=== PATIENT | female | born 1960 | race Caucasian/White ===

== ENCOUNTER → 2017-08-27 | Outpatient (CLI) | payer OTHER ==
[~2017-08-27] MED LIST: ACET-1138 PO; ALBUAER19 INH; ASCO10003 PO; CETI10TA84 PO; DEXT30TA7 PO; FRRG PO; LISI-788 PO; MULT-506 PO; NCYSR50 PO; NRV/5 PO; OMEG10002 PO; RXC5 PO; SNG10 PO; WARF1TAB PO
== END | disposition home or self-care (01) ==
LOC: C.PATHSPEC 15:59
PROVIDERS: ATTEND Obstetrics & Gynecology
DX: N92.4 Excessive bleeding in the premenopausal period (principal)

== ENCOUNTER 2018-04-29 05:40 | Observation (INO) | payer OTHER ==
[2018-04-11 16:13] VITALS: Ht 170.2 cm; Wt 121.8 kg
--- NOTE | 2018-04-25 13:28 | PAT Medication Instructions ---
Service Date Apr 25, 2018. Current Home Medication List Acetaminophen (Tylenol Extra Strength), 1,000 MG PO Q8@00,08,16 Albuterol Inhaler (Ventolin Inhaler), 2 PUFFS INH QID PRN for PRN Amlodipine Besylate (Amlodipine Besylate), 5 MG PO QPM Ascorbic Acid (Vitamin C), 1,000 MG PO QPM PRN for PRN Cetirizine (Zyrtec), 10 MG PO QPM Dextromethorphan-Guaifenesin (Mucinex Dm), 1 TAB PO PRN Lisinopril/Hctz (Zestoretic 20MG/25MG), 1 TAB PO QPM Montelukast Sod (Montelukast Sodium), 10 MG PO QPM Multivitamin (Multivitamin), 1 TAB PO QPM Medication Instructions For Your Scheduled Surgery - Hold the following medications the morning of surgery: Ascorbic Acid (Vitamin C), 1,000 MG PO QPM PRN for PRN Dextromethorphan-Guaifenesin (Mucinex Dm), 1 TAB PO PRN - Take the following medications the morning of surgery with a sip of water: Acetaminophen (Tylenol Extra Strength), 1,000 MG PO Q8@00,08,16 (okay to take up to 4 hours prior to surgery if needed) Albuterol Inhaler (Ventolin Inhaler), 2 PUFFS INH QID PRN for PRN (if needed) - Take the following medications as scheduled the night before surgery: Multivitamin (Multivitamin), 1 TAB PO QPM Lisinopril/Hctz (Zestoretic 20MG/25MG), 1 TAB PO QPM Montelukast Sod (Montelukast Sodium), 10 MG PO QPM Dextromethorphan-Guaifenesin (Mucinex Dm), 1 TAB PO PRN (if needed) Cetirizine (Zyrtec), 10 MG PO QPM Ascorbic Acid (Vitamin C), 1,000 MG PO QPM PRN for PRN (if needed) Amlodipine Besylate (Amlodipine Besylate), 5 MG PO QPM Acetaminophen (Tylenol Extra Strength), 1,000 MG PO Q8@00,08,16 Albuterol Inhaler (Ventolin Inhaler), 2 PUFFS INH QID PRN for PRN (if needed) If you have any questions please call us at [phone] or [phone] or [phone]
[2018-04-25 14:55] LABS: BASO % 0.4 %; BASO ABS # 0.04 K/uL (0-0.2); HEMATOCRIT 38.9 % (37-47); HEMOGLOBIN 12.9 g/dL (12.0-16.0); IG# 0.05 K/uL (0.00-0.02); LYMPH % 17.4 %; LYMPH ABS # 1.72 K/uL (1.2-3.4); MEAN CELL VOLUME 82.2 fL (80-100); MEAN CORPUSCULAR HEMOGLOBIN 27.3 pg (25-34); MEAN CORPUSCULAR HGB CONC 33.2 g/dl (32-36); MEAN PLATELET VOLUME 8.9 fL (7.4-10.4); MONO % 8.6 %; MONO ABS # 0.85 K/uL (0.11-0.59); NEUT % 71.1 %; NEUT ABS # 7.01 K/uL (1.4-6.5); PLATELET COUNT 315 K/uL (130-400); RED CELL DISTRIBUTION WIDTH CV 14.5 % (11.5-14.5); RED CELL DISTRIBUTION WIDTH SD 43.6 fL (36.4-46.3); WHITE BLOOD COUNT 9.87 K/uL (4.8-10.8)
[2018-04-25 16:21] LABS: CALCIUM 9.4 mg/dl (8.5-10.1); CREATININE 0.91 mg/dl (0.60-1.20); POTASSIUM 3.7 mmol/L (3.5-5.1)
[2018-04-29] VITALS (8 sets, daily range): BP systolic 121–148; BP diastolic 71–84; PULSE 82–93; TEMP 36.4–36.6; O2SAT 94–97
[~2018-04-29] VITALS: Ht 170.2 cm; Wt 121.8 kg
[~2018-04-29 05:40] MED LIST changes: -FRRG PO; -NCYSR50 PO; -OMEG10002 PO; -RXC5 PO; -WARF1TAB PO
[2018-04-29] MEDS ORDERED: LACTATED RINGER'S 1000ML 1,000 ML IV SCH ×2 (06:00→08:56)
[2018-04-29] MEDS ORDERED: CEFAZOLIN 3000MG IV PUSH 22.5 ML IV SCH (06:00)
[2018-04-29 06:07] LABS: BASO % 0.4 %; BASO ABS # 0.04 K/uL (0-0.2); EOS % 1.5 %; EOS ABS # 0.16 K/uL (0-0.5); HEMOGLOBIN 14.1 g/dL (12.0-16.0); LYMPH % 22.9 %; MEAN CELL VOLUME 81.7 fL (80-100); MEAN CORPUSCULAR HEMOGLOBIN 27.4 pg (25-34); MEAN PLATELET VOLUME 8.8 fL (7.4-10.4); MONO % 9.9 %; MONO ABS # 1.08 K/uL (0.11-0.59); NEUT % 64.4 %; NEUT ABS # 7.06 K/uL (1.4-6.5); PLATELET COUNT 366 K/uL (130-400); RED CELL DISTRIBUTION WIDTH CV 14.4 % (11.5-14.5); RED CELL DISTRIBUTION WIDTH SD 42.8 fL (36.4-46.3); WHITE BLOOD COUNT 10.94 K/uL (4.8-10.8)
[2018-04-29 06:18] LABS: MEAN CORPUSCULAR HGB CONC 33.6 g/dl (32-36)
--- NOTE | 2018-04-29 06:50 | History & Physical Bridge Note ---
H&P Re-Evaluation Bridge Note: I have examined the patient, reviewed the History & Physical and in the interval since the performance of the History & Physical I have noted the following changes of clinical significance: No changes noted
[2018-04-29] MEDS ORDERED: MIDAZOLAM HCL 1 MG/ML 2ML VIAL ONE (06:57)
[2018-04-29] MEDS ORDERED: FENTANYL CITRATE INJ 50 MCG/1 ML 2 ML VIAL ONE ×2 (06:57→09:13)
[2018-04-29] MEDS ORDERED: LABETALOL HCL IV 5 MG/ML 20ML IV PRN (08:30)
[2018-04-29] MEDS ORDERED: FENTANYL CITRATE INJ 50 MCG/1 ML 2 ML VIAL IV PRN (08:30)
[2018-04-29] MEDS ORDERED: ATROPINE SULFATE 0.1 MG/ML 5ML SYR IV PRN (08:30)
[2018-04-29] MEDS ORDERED: EpHEDrine SULFATE INJ 50 MG/ML AMP IV PRN (08:30)
[2018-04-29] MEDS ORDERED: MEPERIDINE HCL 25 MG/ML CARP IV PRN (08:30)
[2018-04-29] MEDS ORDERED: HYDROmorphone INJ 1 MG/ML SYR IV PRN (08:30)
[2018-04-29] MEDS ORDERED: ONDANSETRON INJ 2 MG/ML 2 ML VIAL IV PRN ×2 (08:30→09:00)
[2018-04-29] MEDS ORDERED: METHYLENE BLUE 0.5% 10 ML VIAL ONE ×2 (08:34→08:37)
[2018-04-29] MEDS ORDERED: PROPOFOL IV EMULSION 10 MG/ML 20 ML VIAL ONE (08:37)
[2018-04-29] MEDS ORDERED: NEOSTIGMINE METHYLSULFATE 5 MG/5 ML SYR ONE (08:56)
[2018-04-29] MEDS ORDERED: ROCURONIUM BROMIDE 10 MG/ML 5 ML VIAL ONE (08:56)
[2018-04-29] MEDS ORDERED: ONDANSETRON INJ 2 MG/ML 2 ML VIAL ONE (08:56)
[2018-04-29] MEDS ORDERED: GLYCOPYRROLATE INJ 0.2 MG/ML VIAL ONE (08:56)
--- NOTE | 2018-04-29 08:56 | [facility] Post Operative Brief Note ---
Immediate Operative Summary Operative Date Apr 29, 2018. Pre-Operative Diagnosis Abnormal Perimenopausal Bleeding, repetitive workup for same, desires definitive treatment Post-Operative Diagnosis Same Procedure(s) Performed Robotic Assisted Total Laparoscopic Hysterectomy, Bilateral Sapingectomy, Cystoscopy Surgeon Dr. Medina Jensen Bindery Machine Tender Surgeon(s) None Estimated Blood Loss 20 ml Findings Consistent with Post-Op Diagnosis Specimens A: Uterus, Cervix and Bilateral Fallopian tubes Drains None Anesthesia Type General Complication(s) none Disposition Accompanied Pt To Recover: no Disposition: Recovery Room / PACU
[2018-04-29] MEDS ORDERED: SIMETHICONE 80 MG CHEW PO PRN (09:00)
[2018-04-29] MEDS ORDERED: KETOROLAC TROMETHAMINE 30 MG/ML VIAL IV. PRN (09:00)
[2018-04-29] MEDS ORDERED: MEPERIDINE HCL 50 MG/ML CARP IV PRN ×2 (09:00)
[2018-04-29] MEDS ORDERED: OXYCODONE/ACETAMINOPHEN 5-325 TAB PO PRN (09:00)
[2018-04-29] MEDS ORDERED: ACETAMINOPHEN 325 MG TAB PO PRN (09:00)
[2018-04-29] MEDS ORDERED: OXYC-57 PO (09:06)
--- NOTE | 2018-04-29 09:07 | Discharge Instructions ---
Discharge Instructions Date of Service Apr 29, 2018. Visit Reason for Visit: Abnormal Perimenopausal Bleeding Discharge Discharge Diagnosis / Problem: Hysterectomy Discharge Goals Goal(s): Specific goals Activity Recommendations Activity Limitations: per Instructions/Follow-up section Anesthesia . Post Anesthesia Instructions: If you have had General Anesthesia or IV Sedation: * Do not drive today. * Resume driving when surgeon permits. * Do not make important decisions or sign legal documents today. * Call surgeon for: 1. Temperature elevations greater than 101 degrees F. 2. Uncontrollable pain. 3. Excessive bleeding. 4. Persistent nausea and vomiting. 5. Medication intolerance (nausea, vomiting or rash). * For nausea and vomiting use only clear liquids such as: tea, soda, bouillon until nausea subsides, then gradually increase diet as tolerated. * If you have any concerns or questions, call your surgeon's office. If physician is unavailable and it is an emergency, call 911 or go to the nearest emergency room. . Instructions / Follow-Up Instructions / Follow-Up POST OPERATIVE: BOWEL FUNCTION/MEDICATIONS: 1. Constipation pain and discomfort are the most common complaints 5-7 days after surgery. Points 2-6 address the things that can help. 2. Chewing gum can help stimulate the gut and help improve digestion and motility. 3. Milk of Magnesia 1-2 times per day until return of bowel function. 4. Colace is a stool softener that helps. Taking this 2-3 times per day until bowel function returns to normal is highly recommended. 5. Dulcolax is a laxative that may be used if several days have passed without a bowel movement. Alternatively Miralax may be used daily instead. 6. Drink plenty of fluids as this will also reduce constipation. 7. Narcotic pain medications will be prescribed by your physician. They are safe to use and we encourage you to use them. If you are not allergic, ibuprofen will also be prescribed. Many patients will be able to transition off of the narcotic medications to ibuprofen by postoperative day 3. ACTIVITY RECOMMENDATIONS: 1. Get plenty of rest and listen to your body. If you are tired, take a nap. 2. You may shower, but do not take a tub bath until you see your doctor at the 2 week post operative visit. 3. Absolutely NO intercourse and nothing in the vagina until you are examined by your doctor at the 6 week visit. At that visit it will be determined when such activities can be resumed. This can range from 6-12 weeks after your surgery depending on healing time. 4. The main physical activity in the first week should be walking. By the second week you can slowly increase activity. There are no limits on walking up and down stairs. 5. Do not lift more than 5-10 lbs for 4 weeks. Remember the "one-handed rule", i.e. if you can lift something with only one hand it's likely okay. 6. Minimize automatic blocker like vacuuming and exercising for 4 weeks. "Overdoing it" can lead to incisions not healing, pain and vaginal bleeding , so again, listen to your body. 7. Driving can be resumed when you feel able. Do not drive within 24 hours of taking a narcotic medication. EXPECTATIONS: 1. Vaginal spotting, bleeding and discharge are common after surgery. There may even be an odor to the discharge which is often related to sutures used in the vagina. If you experience heavy vaginal bleeding, call the office number day or night [phone]. 2. Bladder discomfort is common after surgery from the catheter. This usually resolves in 1-2 weeks. 3. By the end of the 3rd or 4th week you should be feeling much better. It may take up to 6 weeks for your energy levels to return to normal. 4. Narcotic medications have side effects such as: dizziness, headache, nausea and/or vomiting. If you suspect your pain medication is causing problems, call our office and we may be able to prescribe an alternate medication. 5. The skin incisions are often covered with a liquid bandage. This will gradually peel off over time. CALL THE OFFICE IF YOU HAVE ANY OF THE FOLLOWIN. Temperature of 101 degrees or higher. 2. Severe abdominal or pelvic pain not relieved by pain medication. 3. Persistent nausea or vomiting. 4. Increased pain with urination or difficulty urinating. 5. Bright red bleeding that soaks more than 1 pad per hour. CONTACT PHONE NUMBERS: Main Office: [phone] Surgical Nurse: [phone] extension [phone] FOLLOW-UP: Post-Operative Appointments: * Individual instructions will have been given about the timing of your first examination, but this is usually at the end of the second week home. * You will need to call the office at soon after discharge to make the appointment for your post-op check-up if it has not already been scheduled. * Additional information regarding activity, sexual intercourse and when to return to work will be given at this appointment. WE WISH YOU A SPEEDY RECOVERY! Diet Recommendations Recommended Home Diet: resume previous diet Procedures Procedures Performed: Robotic Assisted Total Laparoscopic Hysterectomy, Bilateral Sapingectomy, Cystoscopy Pending Studies Studies pending at discharge: no Medical Emergencies . Who to Call and When: Medical Emergencies: If at any time you feel your situation is an emergency, please call 911 immediately. . Non-Emergent Contact Non-Emergency issues call your: Primary Care Provider . . "Provider Documentation" section prepared by Medina Jensen. . [place] Drug Monitoring Program Search Results: patient reviewed within database, no issues identified
[2018-04-29] MEDS ORDERED: KETOROLAC TROMETHAMINE 30 MG/ML VIAL ONE (09:12)
--- NOTE | 2018-04-29 09:56 | Anesthesiology Progress Note ---
Anesthesia Post Op Note Date & Time Apr 29, 2018 at 09:55 Vital Signs Pain Intensity: 3 Vital Signs Past 12 Hours Date Time Temp Pulse Resp B/P (MAP) Pulse Ox O2 Delivery O2 Flow Rate FiO2 04/29/18 09:45 36.2 75 16 144/86 97 Oxymask 2 04/29/18 09:35 77 18 148/82 97 Oxymask 2 04/29/18 09:25 74 17 130/90 97 Oxymask 8 04/29/18 09:15 77 16 120/84 97 Oxymask 8 04/29/18 09:08 36.2 78 16 133/91 97 Oxymask 8 04/29/18 06:57 36.4 93 18 148/80 (102) 94 Room Air Notes Mental Status: alert / awake / arousable, participated in evaluation Pt Amnestic to Procedure: Yes Nausea / Vomiting: adequately controlled Pain: adequately controlled Airway Patency, RR, SpO2: stable & adequate BP & HR: stable & adequate Hydration State: stable & adequate Anesthetic Complications: no major complications apparent
--- NOTE | 2018-04-29 10:13 | SURGICAL CONSULTATION ---
DATE OF CONSULTATION: 04/29/2018 INTRAOPERATIVE CONSULTATION. SUMMARY: I was called by Dr. Jensen to evaluate an intraoperative finding. Apparently, patient was sat up in a robotic Trendelenburg position for a hysterectomy as I walked in. The uterus is mostly dissected out. The concern that Dr. Jensen had, was in the left side, she felt that there was an adhesive band to the anterior abdominal wall and then the base of that band, there was some little brownish discoloration, was not sure exactly what that was. At this point on evaluating I asked her to raise the image up and this was the medial umbilical ligament that was fairly prominent. The base with the sigmoid colon was attached to it. It appeared to me just by looking at it that probably the patient had some inflammatory changes in that area and whether this bluish discoloration which was very minimal, about 2 cm was related to an endometrioma or possibly an abscess that may develop a diverticulum, at this point given the process that the patient had, undergoing a hysterectomy, I elected not to do anything further. There was obviously no perforation. What I recommended only is to follow up with primary care in the future to get a CAT scan and evaluate that area more thoroughly. She may need further referral to GI. We will be glad to see her in the office anytime, any new developments, but at this point nothing surgically should be done at this time regarding that area.
[2018-04-29] MEDS ORDERED: IV FLUIDS COMPLETED PRN (10:15)
[2018-04-29] MEDS: DOCUSATE SODIUM 100 MG CAP PO SCH ×2 (10:55→13:12)
--- NOTE | 2018-04-29 11:02 | OPERATIVE REPORT ---
DATE OF OPERATION: 04/29/2018 PREOPERATIVE DIAGNOSIS: Abnormal perimenopausal bleeding with repetitive workup and patient desires definitive treatment. POSTOPERATIVE DIAGNOSIS: Abnormal perimenopausal bleeding with repetitive workup and patient desires definitive treatment. PROCEDURE: Robotic-assisted total laparoscopic hysterectomy, bilateral salpingectomy, and cystoscopy. SURGEON: Medina Jensen MD FISH HATCHERY MANAGER: None. ESTIMATED BLOOD LOSS: 20 mL. FINDINGS: Consistent with postoperative diagnosis. SPECIMENS: Uterus, cervix, and bilateral fallopian tubes. DRAINS: None. ANESTHESIA: General. COMPLICATIONS: None. DISPOSITION: Stable to recovery room. DESCRIPTION OF PROCEDURE: Annabella Linda is a 57-year-old patient [facility] as well for abnormal perimenopausal bleeding. She has repetitive workup with uterine sampling, D and C, endometrial biopsy, ultrasound, all of which have been benign; however, Annabella is frustrated and exhausted from these recurrent workups and the anxiety they provoke and she requests definitive treatment. Consents were confirmed and the patient was brought to the operating room where she was placed on the table in the dorsal lithotomy position with Yellofin stirrups, prepped and draped in standard sterile fashion and a hard time-out was taken prior to proceeding. Chan and [employer]Care uterine manipulator were placed in the usual manner. Attention was turned to the abdomen where an optical entry was made just above the umbilicus without complication. The abdomen was insufflated and under direct visualization, right and left lower quadrant ports were placed. The patient was placed in steep Trendelenburg and anesthesia was given some time to make sure the patient would tolerate this safely after which the robot was then docked and surgery proceeded. Initial survey of the pelvis revealed a relatively normal looking uterus, tubes, and ovaries. On the left medial umbilical ligament, there was an adhesion to a significant amount of fatty tissue that was assumed to be around the sigmoid colon; however, due to the amount of fatty tissue present, it was not possible to visualize the actual bowel involved, so I cannot say for sure whether it was small bowel or large bowel. In any case, gently peeling back the fatty portion of this in a blunt manner revealed a pouch of what appears to be either old blood versus old abscess. Dr. Latia Hernandez was requested to come to the room to take a look at this and determine if acute treatment was needed and in his opinion, this may represent either a prior ruptured diverticulum or other bowel process that deserves outpatient workup. He recommended having the patient follow with her primary care provider for consideration of CAT scan to further elucidate whether there is a bowel process here that needs to be addressed or not. However, this time, he recommended no immediate surgical management. This was therefore left in place. The surgery proceeded with the usual dissection of the tubes off of the mesosalpinx, ligation of the uteroovarian ligaments, ligation of the round ligaments, skeletonization of the bilateral uterine arteries, and creation of a bladder flap. Once this was completely accomplished, the colpotomy was completed circumferentially and the cervix, uterus, and tubes were delivered unblock via the vagina. The vaginal cuff was then closed using V-Loc suture in the usual running manner. IV administration of methylene blue dye was performed. Suction irrigation was briefly used to ensure good hemostasis at all working sites prior to removal of all instruments and undocking of the robot. Cystoscopy was then performed, which showed an intact bladder dome without trauma as well as good ureteral jets from both orifices of blue-stained urine. The bladder was then drained and attention was turned to removal of the robotic ports, which were then closed using UR-6 at the umbilicus, 4-0 Monocryl at all skin sites, and Dermabond dressing was then applied. The patient was then transferred in stable condition to her recovery room. I attest to the content of the Intraoperative Record and any orders documented therein. Any exception s are noted below.
[2018-04-29 12:20] LABS: HEMATOCRIT 39.5 % (37-47); HEMOGLOBIN 13.1 g/dL (12.0-16.0)
[2018-04-29] MEDS: OXYCODONE/ACETAMINOPHEN 5-325 TAB PO PRN ×2 (13:12→17:17)
[2018-04-29] MEDS: IBUPROFEN 600 MG TAB PO PRN ×2 (13:13→17:17)
--- NOTE | 2018-05-03 08:10 | Discharge Summary ---
Discharge Summary Date of Service May 03, 2018. Discharge Summary Admission Date: Apr 29, 2018 at 06:35 Discharge Date: Apr 29, 2018 Discharge Disposition: Home Principal Diagnosis: Hysterectomy for abnormal perimenopausal bleeding Medication Reconciliation New Medications: Oxycodone/Acetaminophen 5MG/325MG (Percocet 5MG/325MG) Tab 1 TABLET PO Q4H PRN for Pain, #15 TAB Continued Medications: Acetaminophen (Tylenol Extra Strength) 500 Mg Tab 1000 MG PO Q8@00,08,16, #90 TAB Take for Pain Albuterol Inhaler (Ventolin Inhaler) Aers 2 PUFFS INH QID PRN for PRN, #5 INHALER Amlodipine Besylate (Amlodipine Besylate) 5 Mg Tab 5 MG PO QPM Ascorbic Acid (Vitamin C) 1,000 Mg Tab 1000 MG PO QPM PRN for PRN Cetirizine (Zyrtec) 10 Mg Tab 10 MG PO QPM, TAB Dextromethorphan-Guaifenesin (Mucinex Dm) 1 Tab Tab 1 TAB PO PRN Lisinopril/Hctz (Zestoretic 20MG/25MG) Tab 1 TAB PO QPM, TAB Montelukast Sod (Montelukast Sodium) 10 Mg Tab 10 MG PO QPM Multivitamin (Multivitamin) Tab 1 TAB PO QPM, TAB Hospital Course Total Time Spent: Less than 30 minutes This includes examination of the patient, discharge planning, medication reconciliation, and communication with other providers. Discharge Instructions Please refer to the electronic Patient Visit Report (Discharge Instructions) for additional information.
== END 2018-04-29 17:20 | disposition home or self-care (01) ==
LOC: C.ACU 05:40 → C.MS4N 06:35
PROVIDERS: ADMIT Obstetrics & Gynecology; ATTEND Obstetrics & Gynecology
DX: N92.4 Excessive bleeding in the premenopausal period (principal); N85.2 Hypertrophy of uterus; N83.8 Other noninflammatory disorders of ovary, fallopian tube and broad ligament; J45.909 Unspecified asthma, uncomplicated; I10 Essential (primary) hypertension; Z79.899 Other long term (current) drug therapy; E66.01 Morbid (severe) obesity due to excess calories; Z68.41 Body mass index [BMI] 40.0-44.9, adult; M19.90 Unspecified osteoarthritis, unspecified site; Z87.891 Personal history of nicotine dependence
CPT/HCPCS: 58571; S2900